=== PATIENT | male | born 1965 | race Caucasian/White ===

== ENCOUNTER 2018-01-18 00:20 | Emergency (ER) | payer OTHER, BC | END 2018-01-18 00:52 | disposition home or self-care (01) | LOC: ER 00:20 | DX: M13.862 Other specified arthritis, left knee (principal); E89.0 Postprocedural hypothyroidism | CPT/HCPCS: 73562; 99284 ==

== ENCOUNTER 2018-03-07 07:26 | Emergency (ER) | payer BC, OTHER | END 2018-03-07 08:02 | disposition home or self-care (01) | LOC: ER 08:02 | DX: K04.7 Periapical abscess without sinus (principal); K02.9 Dental caries, unspecified; F17.200 Nicotine dependence, unspecified, uncomplicated; M19.90 Unspecified osteoarthritis, unspecified site; E89.0 Postprocedural hypothyroidism | CPT/HCPCS: 99282 ==

== ENCOUNTER 2020-07-26 14:37 | Inpatient (IN) | payer BC ==
[~2020-07-26] VITALS: Ht 175.3 cm; Wt 138.6 kg
[~2020-07-26 14:37] MED LIST: CHLO15MO2 PO
[2020-07-26] MEDS ORDERED: MORPHINE SULFATE 4 MG/ML VIAL. IV ONE (15:00)
[2020-07-26] MEDS ORDERED: ONDANSETRON PF 4 MG/2 ML VIAL. IVP ONE (15:00)
[2020-07-26] MEDS ORDERED: IV NORMAL SALINE 1000ML BAG 1,000 ML IV ONE (15:00)
--- NOTE | 2020-07-26 15:09 | PHYS DOC ---
Past Medical History Past Medical History: Arthritis, Hyperthyroid Additional Past Medical Histor: graves disease Past Surgical History: Other Additional Past Surgical Histo: partial thyroidectomy Smoking Status: Current Every Day Smoker Alcohol Use: Occasionally Drug Use: None General Adult EDM: Chief Complaint: ABDOMINAL PAIN HPI: HPI: Patient is a 54 year old male who presented to ER today for evaluation of right upper quadrant abdominal pain started on Saturday associate with nausea and vomiting. Patient has history of kidney stone in the past, denies hematuria. Denies any frequency urination. Patient denies any chest pain, no trouble b reathing. Patient denies any fever. Patient denies being exposed to anybody who tested positive for COVID-19. Review of Systems: Review of Systems: Constitutional: Denies fever or chills. [] Eyes: Denies change in visual acuity. [] HENT: Denies nasal congestion or sore throat. [] Respiratory: Denies cough or shortness of breath. [] Cardiovascular: Denies chest pain or edema. [] GI: Positive for abdominal pain, nausea vomiting. : Denies dysuria. [] Musculoskeletal: Denies back pain or joint pain. [] Integument: Denies rash. [] Neurologic: Denies headache, focal weakness or sensory changes. [] Endocrine: Denies polyuria or polydipsia. [] Lymphatic: Denies swollen glands. [] Psychiatric: Denies depression or anxiety. [] Heart Score: Risk Factors: Risk Factors: DM, Current or recent (<one month) smoker, HTN, HLP, family history of CAD, obesity. Risk Scores: Score 0 - 3: 2.5% MACE over next 6 weeks - Discharge Home Score 4 - 6: 20.3% MACE over next 6 weeks - Admit for Clinical Observation Score 7 - 10: 72.7% MACE over next 6 weeks - Early Invasive Strategies Current Medications: Current Medications Medications (Trade) Dose Ordered Sig/Malachi Start Time Stop Time Status Last Admin Dose Admin Morphine Sulfate (Morphine Sulfate) 4 mg 1X ONCE 07/26/20 15:00 07/26/20 15:01 UNV Ondansetron HCl (Zofran) 8 mg 1X ONCE 07/26/20 15:00 07/26/20 15:01 UNV Sodium Chloride 1,000 ml @ 1,000 mls/hr 1X ONCE 07/26/20 15:00 07/26/20 15:59 UNV Allergies: Allergies: Allergies Coded Allergies Type Severity Reaction Last Updated Verified No Known Drug Allergies 05/31/15 No Physical Exam: PE: Constitutional: Well developed, well nourished, no acute distress, non-toxic appearance. [] HENT: Normocephalic, atraumatic, bilateral external ears normal, oropharynx moist, no oral exudates, nose normal. [] Eyes: PERRLA, EOMI, conjunctiva normal, no discharge. [] Neck: Normal range of motion, no tenderness, supple, no stridor. [] Cardiovascular:Heart rate regular rhythm, no murmur [] Lungs & Thorax: Bilateral breath sounds clear to auscultation [] Abdomen: Bowel sounds normal, soft, there is tenderness to RUQ, no masses, no pulsatile masses. [] Skin: Warm, dry, no erythema, no rash. [] Back: No tenderness, no CVA tenderness. [] Extremities: No tenderness, no cyanosis, no clubbing, ROM intact, no edema. [] Neurologic: Alert and oriented X 3, normal motor function, normal sensory function, no focal deficits noted. [] Psychologic: Affect normal, judgement normal, mood normal. [] Current Patient Data: Labs: Laboratory Tests Test 07/26/20 14:58 White Blood Count 17.6 x10^3/uL Red Blood Count 5.67 x10^6/uL Hemoglobin 16.2 g/dL Hematocrit 48.7 % Mean Corpuscular Volume 86 fL Mean Corpuscular Hemoglobin 29 pg Mean Corpuscular Hemoglobin Concent 33 g/dL Red Cell Distribution Width 14.3 % Platelet Count 318 x10^3/uL Neutrophils (%) (Auto) 75 % Lymphocytes (%) (Auto) 14 % Monocytes (%) (Auto) 10 % Eosinophils (%) (Auto) 1 % Basophils (%) (Auto) 1 % Neutrophils # (Auto) 13.2 x10^3/uL Lymphocytes # (Auto) 2.5 x10^3/uL Monocytes # (Auto) 1.7 x10^3/uL Eosinophils # (Auto) 0.1 x10^3/uL Basophils # (Auto) 0.1 x10^3/uL Segmented Neutrophils % 75 % Lymphocytes % 17 % Monocytes % 8 % Toxic Granulation Slight Toxic Vacuolation Slight Platelet Estimate Adequate Prothrombin Time 13.4 SEC Prothromb Time International Ratio 1.1 Activated Partial Thromboplast Time 30 SEC Sodium Level 134 mmol/L Potassium Level 4.5 mmol/L Chloride Level 100 mmol/L Carbon Dioxide Level 25 mmol/L Anion Gap 9 Blood Urea Nitrogen 10 mg/dL Creatinine 0.9 mg/dL Estimated GFR (Cockcroft-Gault) 88.3 BUN/Creatinine Ratio 11 Glucose Level 183 mg/dL Calcium Level 9.3 mg/dL Total Bilirubin 0.9 mg/dL Aspartate Amino Transf (AST/SGOT) 18 U/L Alanine Aminotransferase (ALT/SGPT) 22 U/L Alkaline Phosphatase 87 U/L Total Protein 7.3 g/dL Albumin 3.9 g/dL Albumin/Globulin Ratio 1.1 Lipase 78 U/L Current Medications Medications (Trade) Dose Ordered Sig/Malachi Route PRN Reason Start Time Stop Time Status Last Admin Dose Admin Ondansetron HCl (Zofran) 8 mg 1X ONCE IVP 07/26/20 15:00 07/26/20 15:02 DC 07/26/20 15:06 Morphine Sulfate (Morphine Sulfate) 4 mg 1X ONCE IV 07/26/20 15:00 07/26/20 15:02 DC 07/26/20 15:06 Sodium Chloride 1,000 ml @ 1,000 mls/hr 1X ONCE IV 07/26/20 15:00 07/26/20 15:59 DC 07/26/20 15:06 Piperacillin Sod/ Tazobactam Sod 4.5 gm/Sodium Chloride 100 ml @ 200 mls/hr 1X ONCE IV 07/26/20 16:00 07/26/20 16:29 Radiology/Procedures: Radiology/Procedures: [][][facility] [address] [place], [place] [id number] IMAGING REPORT Signed PATIENT: LAKISHA CISSE ACCOUNT: [id number] : 1965 LOCATION: ER AGE: 54 SEX: M EXAM STATUS: REG ER ORD. PHYSICIAN: FERMÍN NAIR DO REASON: ruq abdominal pain PROCEDURE: ABDOMEN LTD Abdominal ultrasound right upper quadrant: Reason for examination: Right upper quadrant abdominal pain. Pancreas is obscured by bowel gas. The inferior vena cava and abdominal aorta are obscured by bowel gas. The liver is enlarged at 20 cm and shows diffuse fatty infiltration without a focal lesion evident. Gallbladder shows cholelithiasis, sludge and gallbladder wall thickening 7 mm. No pericholecystic fluid is seen. Right kidney measures 13.5 x 6.2 x 5.6 cm in greatest dimension with normal cortical medullary differentiation with no hydronephrosis or mass seen. IMPRESSION: Hepatomegaly with fatty infiltration. Cholelithiasis, sludge and gallbladder wall thickening consistent with cholecystitis. Electronically signed by: Herve Denise MD (07/26/2020 3:52 PM) [facility] CENTERHOWIE DICTATED and SIGNED BY: HERVE DENISE MD DATE: 07/26/20 1165 Course & Med Decision Making: Course & Med Decision Making Pertinent Labs and Imaging studies reviewed. (See chart for details) Patient is a 53-year-old male who was evaluated in ER due to right upper quadrant abdominal pain, ultrasound of his right upper quadrant consistent with acute cholecystitis. Patient will be admitted to hospital, discussed with Dr. Petersen who agreesTO admit the patient. Consult general surgery, Dr. CORNEL LEONARDO. Sandra Disclaimer: Sandra Disclaimer: This electronic medical record was generated, in whole or in part, using a voice recognition dictation system. Departure Departure Impression: Primary Impression: Acute cholecystitis Disposition: ADMITTED INPATIENT Admitting Physician: Clemente Petersen Condition: STABLE Referrals: CLEMENTE PETERSEN MD (PCP) Justicifation of Admission Dx: Justifications for Admission: Justification of Admission Dx: Yes (ACUTE CHOLECYSTITIS) FERMÍN NAIR DO Jul 26, 2020 15:09
[2020-07-26 15:13] LABS: BASO # 0.1 x10^3/uL (0.0-0.2); BASO % 1 % (0-3); EOS # 0.1 x10^3/uL (0.0-0.7); EOS % 1 % (0-3); HEMATOCRIT 48.7 % (39.0-53.0); HEMOGLOBIN 16.2 g/dL (13.0-17.5); LYMPH # 2.5 x10^3/uL (1.0-4.8); LYMPH % 14 % (24-48); MEAN CORPUSCULAR HEMOGLOBIN 29 pg (25-35); MEAN CORPUSCULAR HGB CONC 33 g/dL (31-37); MEAN CORPUSCULAR VOLUME 86 fL (79-100); MONO # 1.7 x10^3/uL (0.0-1.1); MONO % 10 % (0-9); NEUT # 13.2 x10^3/uL (1.8-7.7); NEUT % 75 % (31-73); PLATELET COUNT 318 x10^3/uL (140-400); RED BLOOD COUNT 5.67 x10^6/uL (4.30-5.70); RED CELL DISTRIBUTION WIDTH 14.3 % (11.5-14.5); WHITE BLOOD COUNT 17.6 x10^3/uL (4.0-11.0)
[2020-07-26 15:20] LABS: PROTHROMBIN TIME PATIENT 13.4 SEC (11.7-14.0)
[2020-07-26 15:22] LABS: CALCIUM 9.3 mg/dL (8.5-10.1); CREATININE 0.9 mg/dL (0.7-1.3); GFR 88.3; POTASSIUM 4.5 mmol/L (3.5-5.1)
[2020-07-26 15:26] LABS: ALBUMIN 3.9 g/dL (3.4-5.0); ALBUMIN/GLOBULIN RATIO 1.1 (1.0-1.7); TOTAL BILIRUBIN 0.9 mg/dL (0.2-1.0); TOTAL PROTEIN 7.3 g/dL (6.4-8.2)
[2020-07-26 15:46] LABS: % LYMPHS 17 % (24-48); % MONOS 8 % (0-10); % SEGS 75 % (35-66)
[2020-07-26 15:48] LABS: PLT ESTIMATE ADEQUATE (ADEQUATE); TOXIC GRANULATION SLIGHT; TOXIC VACUOLATION SLIGHT
--- NOTE | 2020-07-26 15:55 | RAD ---
Abdominal ultrasound right upper quadrant: Reason for examination: Right upper quadrant abdominal pain. Pancreas is obscured by bowel gas. The inferior vena cava and abdominal aorta are obscured by bowel gas. The liver is enlarged at 20 cm and shows diffuse fatty infiltration without a focal lesion evident. Gallbladder shows cholelithiasis, sludge and gallbladder wall thickening 7 mm. No pericholecystic fluid is seen. Right kidney measures 13.5 x 6.2 x 5.6 cm in greatest dimension with normal cortical medullary differentiation with no hydronephrosis or mass seen. IMPRESSION: Hepatomegaly with fatty infiltration. Cholelithiasis, sludge and gallbladder wall thickening consistent with cholecystitis. Electronically signed by: Jing Shane MD (07/26/2020 3:52 PM) BENJAMIN
[2020-07-26] MEDS ORDERED: PIPERACILLIN/TAZOBACTAM 4.5 GM in IV NORMAL SALINE 100ML 100 ML IV ONE (16:00)
[2020-07-26] MEDS: IV NORMAL SALINE 1000ML BAG 1,000 ML IV SCH (16:24)
[2020-07-26] MEDS ORDERED: fentaNYL PF VIAL 100 MCG/2 ML VIAL IVP ONE (16:30)
[2020-07-26] MEDS ORDERED: PIP/TAZO PER PHARMACY MC PRN (16:30)
[2020-07-26] MEDS ORDERED: ONDANSETRON PF 4 MG/2 ML VIAL. IV PRN (16:30)
[2020-07-26 16:42] LABS: BILIRUBIN,URINE NEGATIVE (NEG); CLARITY,URINE CLEAR; COLOR,URINE YELLOW; NITRITE,URINE NEGATIVE (NEG); PH,URINE 6.5 (<5.0-8.0); PROTEIN,URINE NEGATIVE (NEG-TRACE)
[2020-07-26 16:54] LABS: BACTERIA,URINE 0 /HPF (0-FEW); RBC,URINE OCC /HPF (0-2); SQUAMOUS EPITHELIAL CELL,UR FEW /LPF; WBC,URINE RARE /HPF (0-4)
[2020-07-26 19:40] VITALS: BP 137/76
[2020-07-26] MEDS: fentaNYL PF VIAL 100 MCG/2 ML VIAL IV PRN ×2 (20:05→22:50)
[2020-07-26 23:00] VITALS: BP 153/74
[2020-07-26] MEDS ORDERED: LEVO200T5 PO (23:45)
[2020-07-26] MEDS ORDERED: SIMV20TA18 PO (23:45)
[2020-07-26] MEDS ORDERED: METF500T16 PO (23:45)
[2020-07-26] MEDS: PIPERACILLIN/TAZOBACTAM 3.375 GM in IV NORMAL SALINE 50ML 50 ML IV SCH (23:49)
[2020-07-27] VITALS (7 sets, daily range): BP systolic 85–143; BP diastolic 39–80
[2020-07-27] MEDS: IV NORMAL SALINE 1000ML BAG 1,000 ML IV SCH ×3 (02:54→17:42)
[2020-07-27] MEDS: fentaNYL PF VIAL 100 MCG/2 ML VIAL IV PRN ×4 (03:46→15:00)
[2020-07-27] MEDS: PIPERACILLIN/TAZOBACTAM 3.375 GM in IV NORMAL SALINE 50ML 50 ML IV SCH ×3 (05:29→17:38)
[2020-07-27] MEDS ORDERED: HEPARIN 1,000 UNIT in IV NORMAL SALINE 1,000 ML for SURG PERIOP IRR ONE (08:00)
--- NOTE | 2020-07-27 08:00 | NUR ---
sleeping. resp even and unlabored. remains npo for possible surgery later today. iv continues to infuse without difficulty
--- NOTE | 2020-07-27 08:13 | HP ---
ADMIT DATE: 07/26/2020 CHIEF COMPLAINT AND HISTORY OF PRESENT ILLNESS: This 54-year-old white male followed in my office, presented to the Emergency Room for right upper quadrant pain starting on Saturday with associated nausea and vomiting. The patient was found to have acute cholecystitis, admitted for the same and surgery. PAST MEDICAL HISTORY: Remarkable for arthritis, history of Graves disease with hypothyroidism, has diabetes, and obstructive sleep apnea. PAST SURGICAL HISTORY: Remarkable for partial thyroidectomy. MEDICATIONS: Brought with the patient, listed on the computer and have been addressed. ALLERGIES: He has no known drug allergies. SOCIAL HISTORY: He drives a truck for living. He is a current everyday smoker. He occasionally has alcohol. He denies drug abuse. FAMILY HISTORY: Noncontributory. REVIEW OF SYSTEMS: Remarkable for him feeling miserable with the abdominal pain, nausea and vomiting. PHYSICAL EXAMINATION: GENERAL: He is a well-developed, well-nourished white male, who appears uncomfortable. VITAL SIGNS: Stable. He is afebrile. HEAD, EYES, EARS, NOSE AND THROAT: Unremarkable. NECK: Supple without adenopathy or thyromegaly. CHEST: Clear to auscultation and percussion. HEART: Regular rate and rhythm without S3, S4 or murmur. ABDOMEN: Soft with right upper quadrant tenderness. No organomegaly or masses appreciated. EXTREMITIES: Without cyanosis, clubbing, edema. NEUROLOGIC: Intact. LABORATORY DATA: Initial lab is remarkable for an elevated blood sugar on the chem panel. His white count is 17,600 with a left shift. Urine shows no evidence of infection. COVID testing is negative. Ultrasound of the abdomen shows hepatomegaly with fatty infiltration, cholelithiasis, sludge, and gallbladder wall thickening consistent with cholecystitis. IMPRESSION: 1. Acute cholecystitis. 2. Other problems listed above. PLAN: The patient has been admitted. Pain will be controlled. Surgery has been consulted. He will need a cholecystectomy and the patient will be monitored, managed, and treated appropriately. CLEMENTE CHENEY MD DR: ASHLYN/dorene JOB#: [id number] / [id number]
--- NOTE | 2020-07-27 09:14 | PDOC2 ---
HERMILA JACOBS AWS DEVELOPER 07/27/20 0914: CONSULT Date of Consult Date of Consult DATE: 07/27/20 TIME: 09:09 Reason for Consult Reason for Consult: cholecystitis Referring Physician Referring Physician: ER Identification/Chief Complaint Chief Complaint abdominal pain Source Source: Chart review, Patient History of Present Illness Reason for Visit: Acute onset of abdominal pain. RUQ with radiation to back. Associated nausea and emesis. Similar symptoms in past, however would resolve on own. Some constipation issues. No aggravating or alleviating factors Past Medical History Cardiovascular: Hyperlipidemia Endocrine: Diabetes, Hypothyroidism Past Surgical History Past Surgical History: No pertinent history Family History Family History: Other (noncontributory to current illness ) Social History Quit (last on Saturday ) ALCOHOL: occassional Drugs: None Lives: with Family Current Problem List Problem List Problems Medical Problems: (1) Acute cholecystitis Status: Acute Current Medications Current Medications Current Medications Ondansetron HCl (Zofran) 8 mg 1X ONCE IVP Last administered on 07/26/20at 15:06; Start 07/26/20 at 15:00; Stop 07/26/20 at 15:02; Status DC Morphine Sulfate (Morphine Sulfate) 4 mg 1X ONCE IV Last administered on 07/26/20at 15:06; Start 07/26/20 at 15:00; Stop 07/26/20 at 15:02; Status DC Sodium Chloride 1,000 ml @ 1,000 mls/hr 1X ONCE IV Last administered on 07/26/20at 15:06; Start 07/26/20 at 15:00; Stop 07/26/20 at 15:59; Status DC Piperacillin Sod/ Tazobactam Sod 4.5 gm/Sodium Chloride 100 ml @ 200 mls/hr 1X ONCE IV Last administered on 07/26/20at 16:20; Start 07/26/20 at 16:00; Stop 07/26/20 at 16:29; Status DC Fentanyl Citrate (Fentanyl 2ml Vial) 75 mcg 1X ONCE IVP Last administered on 07/26/20at 17:17; Start 07/26/20 at 16:30; Stop 07/26/20 at 16:31; Status DC Ondansetron HCl (Zofran) 4 mg PRN Q8HRS PRN IV NAUSEA/VOMITING; Start 07/26/20 at 16:30; Stop 07/27/20 at 16:29 Fentanyl Citrate (Fentanyl 2ml Vial) 50 mcg PRN Q1HR PRN IV PAIN Last administered on 07/27/20at 03:46; Start 07/26/20 at 16:30; Stop 07/27/20 at 16:29 Sodium Chloride 1,000 ml @ 100 mls/hr Q10H IV Last administered on 07/27/20at 02:54; Start 07/26/20 at 16:24; Stop 07/27/20 at 16:23 Piperacillin Sod/ Tazobactam Sod (Zosyn Per Pharmacy) 1 each PRN DAILY PRN MC SEE COMMENTS; Start 07/26/20 at 16:30 Piperacillin Sod/ Tazobactam Sod 3.375 gm/Sodium Chloride 50 ml @ 100 mls/hr Q6HRS IV Last administered on 07/27/20at 05:29; Start 07/27/20 at 00:00 Heparin Sodium (Porcine) 1000 unit/Sodium Chloride 1,001 ml @ 1,001 mls/hr 1X ONCE IRR ; Start 07/27/20 at 08:00; Stop 07/27/20 at 08:59; Status DC Active Scripts Active Peridex (Chlorhexidine Gluconate) 15 Ml Mouthwash 15 Ml PO BID Reported Metformin Hcl 500 Mg Tablet 500 Mg PO DAILY Simvastatin 20 Mg Tablet 20 Mg PO DAILY Levothyroxine Sodium 200 Mcg Tablet 200 Mcg PO DAILYAC Allergies Allergies: Coded Allergies: No Known Drug Allergies (Unverified , 07/27/20) ROS General: YES: Chills, Fatigue PSYCHOLOGICAL ROS: No: Anxiety, Depression Eyes: No Blurry vision, No Double vision HEENT: No: Heacaches, Sore Throat Hematological and Lymphatic: No: Bleeding Problems, Blood Clots Respiratory: No: Cough, Shortness of breath Cardiovascular: No Chest Pain, No Palpitations Gastrointestinal: Yes Other (see hpi) Genitourinary: No Dysuria, No Hematuria Musculoskeletal: No Joint Pain, No Muscle Pain Neurological: No Impaired Coord/balance, No Numbness/Tingling Skin: No Pruritus, No Rash Physical Exam General: Alert, Oriented X3, Cooperative HEENT: Atraumatic, PERRLA Lungs: Clear to auscultation, Normal air movement Heart: Regular rate, Normal S1, Normal S2 Abdomen: Soft, Other (TTP RUQ, obese abdomen ) Extremities: No clubbing, No cyanosis Skin: No rashes, No breakdown Neuro: Normal gait, Normal speech Psych/Mental Status: Mental status NL, Mood NL Vitals VITALS Vital Signs Date Time Temp Pulse Resp B/P (MAP) Pulse Ox O2 Delivery O2 Flow Rate FiO2 07/27/20 07:00 99.2 95 18 135/80 (98) 94 Room Air 99.2 Labs Labs Laboratory Tests Test 07/26/20 14:58 07/26/20 16:20 07/26/20 16:30 07/26/20 20:46 White Blood Count 17.6 x10^3/uL (4.0-11.0) Red Blood Count 5.67 x10^6/uL (4.30-5.70) Hemoglobin 16.2 g/dL (13.0-17.5) Hematocrit 48.7 % (39.0-53.0) Mean Corpuscular Volume 86 fL (79-100) Mean Corpuscular Hemoglobin 29 pg (25-35) Mean Corpuscular Hemoglobin Concent 33 g/dL (31-37) Red Cell Distribution Width 14.3 % (11.5-14.5) Platelet Count 318 x10^3/uL (140-400) Neutrophils (%) (Auto) 75 % (31-73) Lymphocytes (%) (Auto) 14 % (24-48) Monocytes (%) (Auto) 10 % (0-9) Eosinophils (%) (Auto) 1 % (0-3) Basophils (%) (Auto) 1 % (0-3) Neutrophils # (Auto) 13.2 x10^3/uL (1.8-7.7) Lymphocytes # (Auto) 2.5 x10^3/uL (1.0-4.8) Monocytes # (Auto) 1.7 x10^3/uL (0.0-1.1) Eosinophils # (Auto) 0.1 x10^3/uL (0.0-0.7) Basophils # (Auto) 0.1 x10^3/uL (0.0-0.2) Segmented Neutrophils % 75 % (35-66) Lymphocytes % 17 % (24-48) Monocytes % 8 % (0-10) Toxic Granulation Slight Toxic Vacuolation Slight Platelet Estimate Adequate (ADEQUATE) Prothrombin Time 13.4 SEC (11.7-14.0) Prothromb Time International Ratio 1.1 (0.8-1.1) Activated Partial Thromboplast Time 30 SEC (24-38) Sodium Level 134 mmol/L (136-145) Potassium Level 4.5 mmol/L (3.5-5.1) Chloride Level 100 mmol/L (98-107) Carbon Dioxide Level 25 mmol/L (21-32) Anion Gap 9 (6-14) Blood Urea Nitrogen 10 mg/dL (8-26) Creatinine 0.9 mg/dL (0.7-1.3) Estimated GFR (Cockcroft-Gault) 88.3 BUN/Creatinine Ratio 11 (6-20) Glucose Level 183 mg/dL (70-99) Calcium Level 9.3 mg/dL (8.5-10.1) Total Bilirubin 0.9 mg/dL (0.2-1.0) Aspartate Amino Transf (AST/SGOT) 18 U/L (15-37) Alanine Aminotransferase (ALT/SGPT) 22 U/L (16-63) Alkaline Phosphatase 87 U/L (46-116) Total Protein 7.3 g/dL (6.4-8.2) Albumin 3.9 g/dL (3.4-5.0) Albumin/Globulin Ratio 1.1 (1.0-1.7) Lipase 78 U/L (73-393) Urine Collection Type Unknown Urine Color Yellow Urine Clarity Clear Urine pH 6.5 (<5.0-8.0) Urine Specific [place] 1.010 (1.000-1.030) Urine Protein Negative mg/dL (NEG-TRACE) Urine Glucose (UA) 100 mg/dL (NEG) Urine Ketones (Stick) Negative mg/dL (NEG) Urine Blood Negative (NEG) Urine Nitrite Negative (NEG) Urine Bilirubin Negative (NEG) Urine Urobilinogen Dipstick 1.0 mg/dL (0.2 mg/dL) Urine Leukocyte Esterase Negative (NEG) Urine RBC Occ /HPF (0-2) Urine WBC Rare /HPF (0-4) Urine Squamous Epithelial Cells Few /LPF Urine Bacteria 0 /HPF (0-FEW) Urine Mucus Mod /LPF SARS-CoV-2 Antigen (Rapid) Negative (NEGATIVE) Glucose (Fingerstick) 167 mg/dL (70-99) Test 07/27/20 07:22 Glucose (Fingerstick) 171 mg/dL (70-99) Laboratory Tests Test 07/26/20 14:58 07/26/20 16:20 07/26/20 16:30 07/26/20 20:46 White Blood Count 17.6 x10^3/uL (4.0-11.0) Red Blood Count 5.67 x10^6/uL (4.30-5.70) Hemoglobin 16.2 g/dL (13.0-17.5) Hematocrit 48.7 % (39.0-53.0) Mean Corpuscular Volume 86 fL (79-100) Mean Corpuscular Hemoglobin 29 pg (25-35) Mean Corpuscular Hemoglobin Concent 33 g/dL (31-37) Red Cell Distribution Width 14.3 % (11.5-14.5) Platelet Count 318 x10^3/uL (140-400) Neutrophils (%) (Auto) 75 % (31-73) Lymphocytes (%) (Auto) 14 % (24-48) Monocytes (%) (Auto) 10 % (0-9) Eosinophils (%) (Auto) 1 % (0-3) Basophils (%) (Auto) 1 % (0-3) Neutrophils # (Auto) 13.2 x10^3/uL (1.8-7.7) Lymphocytes # (Auto) 2.5 x10^3/uL (1.0-4.8) Monocytes # (Auto) 1.7 x10^3/uL (0.0-1.1) Eosinophils # (Auto) 0.1 x10^3/uL (0.0-0.7) Basophils # (Auto) 0.1 x10^3/uL (0.0-0.2) Segmented Neutrophils % 75 % (35-66) Lymphocytes % 17 % (24-48) Monocytes % 8 % (0-10) Toxic Granulation Slight Toxic Vacuolation Slight Platelet Estimate Adequate (ADEQUATE) Prothrombin Time 13.4 SEC (11.7-14.0) Prothromb Time International Ratio 1.1 (0.8-1.1) Activated Partial Thromboplast Time 30 SEC (24-38) Sodium Level 134 mmol/L (136-145) Potassium Level 4.5 mmol/L (3.5-5.1) Chloride Level 100 mmol/L (98-107) Carbon Dioxide Level 25 mmol/L (21-32) Anion Gap 9 (6-14) Blood Urea Nitrogen 10 mg/dL (8-26) Creatinine 0.9 mg/dL (0.7-1.3) Estimated GFR (Cockcroft-Gault) 88.3 BUN/Creatinine Ratio 11 (6-20) Glucose Level 183 mg/dL (70-99) Calcium Level 9.3 mg/dL (8.5-10.1) Total Bilirubin 0.9 mg/dL (0.2-1.0) Aspartate Amino Transf (AST/SGOT) 18 U/L (15-37) Alanine Aminotransferase (ALT/SGPT) 22 U/L (16-63) Alkaline Phosphatase 87 U/L (46-116) Total Protein 7.3 g/dL (6.4-8.2) Albumin 3.9 g/dL (3.4-5.0) Albumin/Globulin Ratio 1.1 (1.0-1.7) Lipase 78 U/L (73-393) Urine Collection Type Unknown Urine Color Yellow Urine Clarity Clear Urine pH 6.5 (<5.0-8.0) Urine Specific [place] 1.010 (1.000-1.030) Urine Protein Negative mg/dL (NEG-TRACE) Urine Glucose (UA) 100 mg/dL (NEG) Urine Ketones (Stick) Negative mg/dL (NEG) Urine Blood Negative (NEG) Urine Nitrite Negative (NEG) Urine Bilirubin Negative (NEG) Urine Urobilinogen Dipstick 1.0 mg/dL (0.2 mg/dL) Urine Leukocyte Esterase Negative (NEG) Urine RBC Occ /HPF (0-2) Urine WBC Rare /HPF (0-4) Urine Squamous Epithelial Cells Few /LPF Urine Bacteria 0 /HPF (0-FEW) Urine Mucus Mod /LPF SARS-CoV-2 Antigen (Rapid) Negative (NEGATIVE) Glucose (Fingerstick) 167 mg/dL (70-99) Test 07/27/20 07:22 Glucose (Fingerstick) 171 mg/dL (70-99) Assessment/Plan Assessment/Plan cholecystitis plan lap gabo today SMITHA SMITH MD 07/27/20 1524: CONSULT Assessment/Plan Assessment/Plan Pt seen and examined. Agree with Ms. Nickel's note Pt with multiple previous episodes of pain, but resolved This episode began 07/24, not resolved and is severe abd soft, TTP RUQ TO OR for laparoscopic cholecystectomy with cholangiogram R/R/B/A d/w pt and pt's supportive . Risks, including, but not limited to: bleeding, infection, damage to surrounding structures, risk of anesthesia, risk of open. Suspect this is fulminent cholecystitis and hence difficult. In addition, his morbid obesity makes perioperative complications more likely. They appear to understand, their questions are answered and they elect to proceed. Thanks for consult! HERMILA JACOBS APRN Jul 27, 2020 09:14 SMITHA SMITH MD Jul 27, 2020 15:24
--- NOTE | 2020-07-27 10:00 | NUR ---
awake. complains of pain in the lower abdomen and epigastric area. consent for lap gabo obtained; then medicated for pain with fentanyl
--- NOTE | 2020-07-27 10:19 | NUR ---
SW following. Discussed with RN, pt from home with spouse, room air, NPO, COVID-19 negative. Pt having a lap gabo. SW will continue to follow.
[2020-07-27] MEDS ORDERED: PROPOFOL 10 MG/ML (20ML) VIAL. IV ONE (14:15)
[2020-07-27] MEDS ORDERED: fentaNYL PF VIAL 100 MCG/2 ML VIAL ONE ×3 (14:40→16:28)
[2020-07-27] MEDS ORDERED: ROCURONIUM 50 MG/5 ML VIAL. ONE ×2 (14:40→16:38)
[2020-07-27] MEDS ORDERED: MIDAZOLAM HCL/PF 2 MG/2 ML VIAL. ONE (14:40)
[2020-07-27] MEDS ORDERED: ONDANSETRON PF 4 MG/2 ML VIAL. ONE (14:40)
[2020-07-27] MEDS ORDERED: DEXAMETHASONE SOD PHOS 4 MG/ML VIAL ONE (14:40)
[2020-07-27] MEDS ORDERED: LIDOCAINE 2% PF 5 ML VIAL. ONE ×2 (14:40→17:04)
[2020-07-27] MEDS ORDERED: INSULIN LISPRO 100 UNIT/ML 3ML VIAL for OP,RR ONLY. SQ PRN (14:45)
[2020-07-27] MEDS ORDERED: IV RINGERS,LACTATED 1000ML 1,000 ML IV SCH (15:26)
[2020-07-27] MEDS ORDERED: SURGICEL HEMOSTAT 4X8 EACH. ONE (15:29)
[2020-07-27] MEDS ORDERED: BISACODYL 10 MG SUPP.RECT. ONE (15:29)
[2020-07-27] MEDS ORDERED: BUPIVACAINE-EPI 0.5%-1:200000 MPF 30 ML VIAL. ONE (15:29)
[2020-07-27] MEDS ORDERED: IOHEXOL 300 MG/ML 50 ML VIAL. ONE (15:29)
[2020-07-27] MEDS ORDERED: PROCHLORPERAZINE 10 MG/2 ML VIAL. IV PRN (15:30)
[2020-07-27] MEDS ORDERED: fentaNYL PF VIAL 100 MCG/2 ML VIAL IV PRN ×2 (15:30)
[2020-07-27] MEDS ORDERED: ONDANSETRON PF 4 MG/2 ML VIAL. IV PRN (15:30)
[2020-07-27] MEDS ORDERED: HYDROmorphone 2 MG/ML VIAL IV PRN (15:30)
[2020-07-27] MEDS ORDERED: MORPHINE SULFATE 2 MG/ML VIAL. IV PRN ×2 (15:30→17:45)
[2020-07-27] MEDS ORDERED: LIDOCAINE 1% PF 2 ML VIAL. ID PRN (15:30)
[2020-07-27] MEDS ORDERED: PHENYLEPHRINE 10 MG/ML VIAL. ONE (16:02)
[2020-07-27] MEDS ORDERED: ESMOLOL 100 MG/10 ML VIAL. IVP ONE (16:32)
[2020-07-27] MEDS ORDERED: NEOSTIGMINE METHYLSULFATE 5 MG/5 ML SYRINGE. ONE (16:51)
[2020-07-27] MEDS ORDERED: GLYCOPYRROLATE 1 MG/5 ML VIAL. ONE (16:51)
--- NOTE | 2020-07-27 17:00 | RAD ---
Intraoperative cholangiogram INDICATION: Cholangiogram. COMPARISON: Abdominal ultrasound of 07/26/2020 FINDINGS: Single intraoperative view of the right upper quadrant abdomen was obtained during operative cholangiography. Total fluoroscopy time was 0.08 minutes. The hepatobiliary tree is opacified and there is contrast in the duodenum. No filling defects are identified. IMPRESSION: Normal single view intraoperative cholangiogram post cholecystectomy. Electronically signed by: Franky Reyes MD (07/27/2020 4:57 PM) [id number]
[2020-07-27] MEDS ORDERED: DEXTROSE 50% 25 GM / 50ML DISP.SYRIN. IV PRN (17:45)
[2020-07-27] MEDS ORDERED: HYDROcodone/APAP 5/325MG 1 TAB TABLET PO PRN (17:45)
[2020-07-27] MEDS ORDERED: ONDANSETRON PF 4 MG/2 ML VIAL. IVP PRN (17:45)
[2020-07-27] MEDS ORDERED: 0.9 % SODIUM CHLORIDE 10 ML DISP.SYRIN. IV PRN (17:45)
[2020-07-27] MEDS ORDERED: NALOXONE 0.4 MG/ML VIAL. IV PRN (17:45)
--- NOTE | 2020-07-27 17:51 | PDOC4 ---
OPERATIVE NOTE Date: Date: Jul 27, 2020 Pre-Op Diagnosis: Calculous cholecystitis Post-Op Diagnosis: same, severe, gangrenous Procedure Performed: laparoscopic cholecystectomy with cholangiogram Surgeon: Pepe Smith Anesthesia Type: GETA plus local Blood Loss: 100 Specimans Obtained: gallbladder Findings: severe cholecystitis with gangrenous changes, distended, normal cholangiogram, morbid obesity Complications: none Operative Note: After obtaining informed consent, patient was taken to OR, induced under GETA and prepped in the usual fashion. 5 mm port placed umbilical and RUQ, 12 port placed epigastric. Abdominal cavity was explored and noted as above. Gallbladder grasped and triangle of calot exposed. Cystic duct and artery identified as only structures going into gallbladder. Cystic artery ligated with clips. Cholangiogram obtained via cystic duct and was normal. Cystic duct ligated with clips and hemolok. Gallbladder taken off fossa using cautery, placed in bag, delivered and sent to pathology. Copious irrigation. No evidence of bleeding or other pathology. Surgicel placed in fossa. Ports rem charly without bleeding. Fascia repaired with 0 vicryl. Skin repaired with 4 0 monocryl. Dressing placed. Patient tolerated procedure well and sent to PACU in stable condition. All counts correct. Wound class is 4. SMITHA SMITH MD Jul 27, 2020 17:51
--- NOTE | 2020-07-27 18:15 | NUR ---
returned from surgery. immediately up to the bathroom; passed stool and urine. blood pressure is hypotensive at this time. denies lightheadedness or dizziness and returns to bed. clear liquids given. instructed not to get up by himself related to the hypotension--verbalized understanding
[2020-07-27] MEDS: IV RINGERS,LACTATED 1000ML 1,000 ML IV SCH (21:40)
[2020-07-27] MEDS: DOCUSATE SODIUM 100 MG CAPSULE. PO SCH (21:44)
[2020-07-28] MEDS: PIPERACILLIN/TAZOBACTAM 3.375 GM in IV NORMAL SALINE 50ML 50 ML IV SCH ×4 (00:05→18:54)
[2020-07-28 03:00] VITALS: BP 136/63
[2020-07-28] MEDS: IV RINGERS,LACTATED 1000ML 1,000 ML IV SCH ×3 (03:42→23:42)
[2020-07-28 07:00] VITALS: BP 132/66
[2020-07-28] MEDS: DOCUSATE SODIUM 100 MG CAPSULE. PO SCH ×2 (08:32→21:14)
--- NOTE | 2020-07-28 09:37 | NUR ---
SW following. Discussed with RN, pt from home with spouse, room air, full liquid diet. Pt had surgery 07/27/2020 - doing well. Anticipate possible discharge in the next day or two. SW will continue to follow.
--- NOTE | 2020-07-28 10:34 | PDOC ---
SURGICAL PROGRESS NOTE DATE: 07/28/20 TIME: 10:33 Subjective tolerating diet pain moderate Vital Signs Vital Signs Date Time Temp Pulse Resp B/P (MAP) Pulse Ox O2 Delivery O2 Flow Rate FiO2 07/28/20 07:00 98.6 85 18 132/66 (88) 94 Room Air 98.6 07/28/20 03:00 10.0 I&O Intake and Output 07/28/20 07:00 Intake Total 4000 ml Output Total 160 ml Balance 3840 ml Intake Oral 300 ml IV Total 2800 ml Other 900 ml Output Urine Total 60 ml Estimated Blood Loss 100 ml # Voids 1 General: Alert, Oriented X3, Cooperative Abdomen: Soft, Other (lap sites ttp) Labs Laboratory Tests Test 07/26/20 14:58 07/26/20 16:20 07/26/20 16:30 07/26/20 20:46 White Blood Count 17.6 x10^3/uL (4.0-11.0) Red Blood Count 5.67 x10^6/uL (4.30-5.70) Hemoglobin 16.2 g/dL (13.0-17.5) Hematocrit 48.7 % (39.0-53.0) Mean Corpuscular Volume 86 fL (79-100) Mean Corpuscular Hemoglobin 29 pg (25-35) Mean Corpuscular Hemoglobin Concent 33 g/dL (31-37) Red Cell Distribution Width 14.3 % (11.5-14.5) Platelet Count 318 x10^3/uL (140-400) Neutrophils (%) (Auto) 75 % (31-73) Lymphocytes (%) (Auto) 14 % (24-48) Monocytes (%) (Auto) 10 % (0-9) Eosinophils (%) (Auto) 1 % (0-3) Basophils (%) (Auto) 1 % (0-3) Neutrophils # (Auto) 13.2 x10^3/uL (1.8-7.7) Lymphocytes # (Auto) 2.5 x10^3/uL (1.0-4.8) Monocytes # (Auto) 1.7 x10^3/uL (0.0-1.1) Eosinophils # (Auto) 0.1 x10^3/uL (0.0-0.7) Basophils # (Auto) 0.1 x10^3/uL (0.0-0.2) Segmented Neutrophils % 75 % (35-66) Lymphocytes % 17 % (24-48) Monocytes % 8 % (0-10) Toxic Granulation Slight Toxic Vacuolation Slight Platelet Estimate Adequate (ADEQUATE) Prothrombin Time 13.4 SEC (11.7-14.0) Prothromb Time International Ratio 1.1 (0.8-1.1) Activated Partial Thromboplast Time 30 SEC (24-38) Sodium Level 134 mmol/L (136-145) Potassium Level 4.5 mmol/L (3.5-5.1) Chloride Level 100 mmol/L (98-107) Carbon Dioxide Level 25 mmol/L (21-32) Anion Gap 9 (6-14) Blood Urea Nitrogen 10 mg/dL (8-26) Creatinine 0.9 mg/dL (0.7-1.3) Estimated GFR (Cockcroft-Gault) 88.3 BUN/Creatinine Ratio 11 (6-20) Glucose Level 183 mg/dL (70-99) Calcium Level 9.3 mg/dL (8.5-10.1) Total Bilirubin 0.9 mg/dL (0.2-1.0) Aspartate Amino Transf (AST/SGOT) 18 U/L (15-37) Alanine Aminotransferase (ALT/SGPT) 22 U/L (16-63) Alkaline Phosphatase 87 U/L (46-116) Total Protein 7.3 g/dL (6.4-8.2) Albumin 3.9 g/dL (3.4-5.0) Albumin/Globulin Ratio 1.1 (1.0-1.7) Lipase 78 U/L (73-393) Urine Collection Type Unknown Urine Color Yellow Urine Clarity Clear Urine pH 6.5 (<5.0-8.0) Urine Specific [place] 1.010 (1.000-1.030) Urine Protein Negative mg/dL (NEG-TRACE) Urine Glucose (UA) 100 mg/dL (NEG) Urine Ketones (Stick) Negative mg/dL (NEG) Urine Blood Negative (NEG) Urine Nitrite Negative (NEG) Urine Bilirubin Negative (NEG) Urine Urobilinogen Dipstick 1.0 mg/dL (0.2 mg/dL) Urine Leukocyte Esterase Negative (NEG) Urine RBC Occ /HPF (0-2) Urine WBC Rare /HPF (0-4) Urine Squamous Epithelial Cells Few /LPF Urine Bacteria 0 /HPF (0-FEW) Urine Mucus Mod /LPF Coronavirus (PCR) Not detected (Not Detected) SARS-CoV-2 Antigen (Rapid) Negative (NEGATIVE) Glucose (Fingerstick) 167 mg/dL (70-99) Test 07/27/20 07:22 07/27/20 11:16 07/27/20 15:00 07/27/20 17:29 Glucose (Fingerstick) 171 mg/dL (70-99) 171 mg/dL (70-99) 176 mg/dL (70-99) 156 mg/dL (70-99) Test 07/27/20 20:22 07/28/20 07:26 Glucose (Fingerstick) 253 mg/dL (70-99) 174 mg/dL (70-99) Laboratory Tests Test 07/27/20 11:16 07/27/20 15:00 07/27/20 17:29 07/27/20 20:22 Glucose (Fingerstick) 171 mg/dL (70-99) 176 mg/dL (70-99) 156 mg/dL (70-99) 253 mg/dL (70-99) Test 07/28/20 07:26 Glucose (Fingerstick) 174 mg/dL (70-99) Problem List Problems Medical Problems: (1) Acute cholecystitis Status: Acute Assessment/Plan continue abx cbc pending --wbc 17--rec continue IV abx today ambulate Justicifation of Admission Dx: Justifications for Admission: Justification of Admission Dx: Yes (ACUTE CHOLECYSTITIS) HERMILA JACOBS [employer] WELDER Jul 28, 2020 10:34
[2020-07-28 10:40] LABS: BASO # 0.1 x10^3/uL (0.0-0.2); BASO % 1 % (0-3); EOS # 0.3 x10^3/uL (0.0-0.7); EOS % 2 % (0-3); HEMATOCRIT 42.2 % (39.0-53.0); LYMPH # 2.7 x10^3/uL (1.0-4.8); LYMPH % 16 % (24-48); MEAN CORPUSCULAR HEMOGLOBIN 29 pg (25-35); MEAN CORPUSCULAR HGB CONC 33 g/dL (31-37); MEAN CORPUSCULAR VOLUME 87 fL (79-100); MONO # 2.2 x10^3/uL (0.0-1.1); MONO % 12 % (0-9); NEUT # 12.4 x10^3/uL (1.8-7.7); NEUT % 70 % (31-73); PLATELET COUNT 252 x10^3/uL (140-400); RED BLOOD COUNT 4.84 x10^6/uL (4.30-5.70); RED CELL DISTRIBUTION WIDTH 14.3 % (11.5-14.5); WHITE BLOOD COUNT 17.7 x10^3/uL (4.0-11.0)
[2020-07-28 11:00] VITALS: BP 141/54
[2020-07-28 11:06] LABS: CALCIUM 8.7 mg/dL (8.5-10.1); GFR 78.2
[2020-07-28 15:00] VITALS: BP 115/61
--- NOTE | 2020-07-28 16:30 | NUR ---
Ambulated hallways twice today and tolerated it well. Will sit in chair for dinner. Cont. monitor.
[2020-07-28] MEDS: IV NORMAL SALINE 1000ML BAG 1,000 ML IV SCH (17:42)
[2020-07-28 19:25] VITALS: BP 113/56
--- NOTE | 2020-07-28 21:12 | PDOC ---
DATE OF SERVICE: DATE: 07/28/20 TIME: 21:10 GENERAL General: vss and afebrile. awake and alert and expected post op pain but much improved from preop. chest clear, heart regular, abdomen soft. ate 1/2 of breakfast. dc per surgery. VITAL SIGNS/I&O Vital Signs/I&O: Vital Signs Date Time Temp Pulse Resp B/P (MAP) Pulse Ox O2 Delivery O2 Flow Rate FiO2 07/28/20 19:40 Room Air 07/28/20 19:25 98.3 68 18 113/56 (75) 94 98.3 07/28/20 03:00 10.0 I & O 07/27/20 07/27/20 07/28/20 15:00 23:00 07:00 Intake Total 50 ml 2050 ml 1900 ml Output Total 160 ml Balance 50 ml 1890 ml 1900 ml ALLERGIES Allergies: Allergies Coded Allergies Type Severity Reaction Last Updated Verified No Known Drug Allergies 07/27/20 No LAB Lab: Laboratory Tests Test 07/28/20 07:26 07/28/20 10:23 07/28/20 11:42 07/28/20 16:28 Glucose (Fingerstick) 174 mg/dL (70-99) H 118 mg/dL (70-99) H 115 mg/dL (70-99) H White Blood Count 17.7 x10^3/uL (4.0-11.0) H Red Blood Count 4.84 x10^6/uL (4.30-5.70) Hemoglobin 14.0 g/dL (13.0-17.5) Hematocrit 42.2 % (39.0-53.0) Mean Corpuscular Volume 87 fL (79-100) Mean Corpuscular Hemoglobin 29 pg (25-35) Mean Corpuscular Hemoglobin Concent 33 g/dL (31-37) Red Cell Distribution Width 14.3 % (11.5-14.5) Platelet Count 252 x10^3/uL (140-400) Neutrophils (%) (Auto) 70 % (31-73) Lymphocytes (%) (Auto) 16 % (24-48) L Monocytes (%) (Auto) 12 % (0-9) H Eosinophils (%) (Auto) 2 % (0-3) Basophils (%) (Auto) 1 % (0-3) Neutrophils # (Auto) 12.4 x10^3/uL (1.8-7.7) H Lymphocytes # (Auto) 2.7 x10^3/uL (1.0-4.8) Monocytes # (Auto) 2.2 x10^3/uL (0.0-1.1) H Eosinophils # (Auto) 0.3 x10^3/uL (0.0-0.7) Basophils # (Auto) 0.1 x10^3/uL (0.0-0.2) Sodium Level 137 mmol/L (136-145) Potassium Level 4.0 mmol/L (3.5-5.1) Chloride Level 104 mmol/L (98-107) Carbon Dioxide Level 27 mmol/L (21-32) Anion Gap 6 (6-14) Blood Urea Nitrogen 15 mg/dL (8-26) Creatinine 1.0 mg/dL (0.7-1.3) Estimated GFR (Cockcroft-Gault) 78.2 Glucose Level 138 mg/dL (70-99) H Calcium Level 8.7 mg/dL (8.5-10.1) Test 07/28/20 20:57 Glucose (Fingerstick) 107 mg/dL (70-99) H Laboratory Tests 07/28/20 10:23 Laboratory Tests 07/28/20 10:23 Justifications for Admission Other Justification CLEMENTE CHENEY MD Jul 28, 2020 21:12
[2020-07-28] MEDS: LACTOBACILLUS RHAMNOSUS GG 1 CAPSULE. PO SCH (21:14)
[2020-07-28 23:20] VITALS: BP 110/50
[2020-07-29] MEDS: PIPERACILLIN/TAZOBACTAM 3.375 GM in IV NORMAL SALINE 50ML 50 ML IV SCH ×3 (00:06→11:27)
[2020-07-29 03:12] VITALS: BP 113/63
[2020-07-29 07:00] VITALS: BP 117/69
--- NOTE | 2020-07-29 09:12 | PDOC ---
SURGICAL PROGRESS NOTE DATE: 07/29/20 TIME: 09:10 Subjective still with pain--does not like to take narcotics--took one yesterday, did help no n/v ambulating eating Vital Signs Vital Signs Date Time Temp Pulse Resp B/P (MAP) Pulse Ox O2 Delivery O2 Flow Rate FiO2 07/29/20 07:00 97.9 58 18 117/69 (85) 94 Room Air 97.9 I&O Intake and Output 07/29/20 07:00 Intake Total 1110 ml Output Total 400 ml Balance 710 ml Intake Oral 1010 ml Other 100 ml Output Urine Total 400 ml # Voids 1 General: Alert, Oriented X3, Cooperative Abdomen: Soft, Other (lap sites c/d/i, no erythema) Labs Laboratory Tests Test 07/27/20 11:16 07/27/20 15:00 07/27/20 17:29 07/27/20 20:22 Glucose (Fingerstick) 171 mg/dL (70-99) 176 mg/dL (70-99) 156 mg/dL (70-99) 253 mg/dL (70-99) Test 07/28/20 07:26 07/28/20 10:23 07/28/20 11:42 07/28/20 16:28 Glucose (Fingerstick) 174 mg/dL (70-99) 118 mg/dL (70-99) 115 mg/dL (70-99) White Blood Count 17.7 x10^3/uL (4.0-11.0) Red Blood Count 4.84 x10^6/uL (4.30-5.70) Hemoglobin 14.0 g/dL (13.0-17.5) Hematocrit 42.2 % (39.0-53.0) Mean Corpuscular Volume 87 fL (79-100) Mean Corpuscular Hemoglobin 29 pg (25-35) Mean Corpuscular Hemoglobin Concent 33 g/dL (31-37) Red Cell Distribution Width 14.3 % (11.5-14.5) Platelet Count 252 x10^3/uL (140-400) Neutrophils (%) (Auto) 70 % (31-73) Lymphocytes (%) (Auto) 16 % (24-48) Monocytes (%) (Auto) 12 % (0-9) Eosinophils (%) (Auto) 2 % (0-3) Basophils (%) (Auto) 1 % (0-3) Neutrophils # (Auto) 12.4 x10^3/uL (1.8-7.7) Lymphocytes # (Auto) 2.7 x10^3/uL (1.0-4.8) Monocytes # (Auto) 2.2 x10^3/uL (0.0-1.1) Eosinophils # (Auto) 0.3 x10^3/uL (0.0-0.7) Basophils # (Auto) 0.1 x10^3/uL (0.0-0.2) Sodium Level 137 mmol/L (136-145) Potassium Level 4.0 mmol/L (3.5-5.1) Chloride Level 104 mmol/L (98-107) Carbon Dioxide Level 27 mmol/L (21-32) Anion Gap 6 (6-14) Blood Urea Nitrogen 15 mg/dL (8-26) Creatinine 1.0 mg/dL (0.7-1.3) Estimated GFR (Cockcroft-Gault) 78.2 Glucose Level 138 mg/dL (70-99) Calcium Level 8.7 mg/dL (8.5-10.1) Test 07/28/20 20:57 07/29/20 07:24 Glucose (Fingerstick) 107 mg/dL (70-99) 89 mg/dL (70-99) Laboratory Tests Test 07/28/20 10:23 07/28/20 11:42 07/28/20 16:28 07/28/20 20:57 White Blood Count 17.7 x10^3/uL (4.0-11.0) Red Blood Count 4.84 x10^6/uL (4.30-5.70) Hemoglobin 14.0 g/dL (13.0-17.5) Hematocrit 42.2 % (39.0-53.0) Mean Corpuscular Volume 87 fL (79-100) Mean Corpuscular Hemoglobin 29 pg (25-35) Mean Corpuscular Hemoglobin Concent 33 g/dL (31-37) Red Cell Distribution Width 14.3 % (11.5-14.5) Platelet Count 252 x10^3/uL (140-400) Neutrophils (%) (Auto) 70 % (31-73) Lymphocytes (%) (Auto) 16 % (24-48) Monocytes (%) (Auto) 12 % (0-9) Eosinophils (%) (Auto) 2 % (0-3) Basophils (%) (Auto) 1 % (0-3) Neutrophils # (Auto) 12.4 x10^3/uL (1.8-7.7) Lymphocytes # (Auto) 2.7 x10^3/uL (1.0-4.8) Monocytes # (Auto) 2.2 x10^3/uL (0.0-1.1) Eosinophils # (Auto) 0.3 x10^3/uL (0.0-0.7) Basophils # (Auto) 0.1 x10^3/uL (0.0-0.2) Sodium Level 137 mmol/L (136-145) Potassium Level 4.0 mmol/L (3.5-5.1) Chloride Level 104 mmol/L (98-107) Carbon Dioxide Level 27 mmol/L (21-32) Anion Gap 6 (6-14) Blood Urea Nitrogen 15 mg/dL (8-26) Creatinine 1.0 mg/dL (0.7-1.3) Estimated GFR (Cockcroft-Gault) 78.2 Glucose Level 138 mg/dL (70-99) Calcium Level 8.7 mg/dL (8.5-10.1) Glucose (Fingerstick) 118 mg/dL (70-99) 115 mg/dL (70-99) 107 mg/dL (70-99) Test 07/29/20 07:24 Glucose (Fingerstick) 89 mg/dL (70-99) Problem List Problems Medical Problems: (1) Acute cholecystitis Status: Acute Assessment/Plan s/p gabo cbc pending--if improved could dc home on oral abx Justicifation of Admission Dx: Justifications for Admission: Justification of Admission Dx: Yes (ACUTE CHOLECYSTITIS) HERMILA JACOBS PANEL BEATER Jul 29, 2020 09:12
[2020-07-29] MEDS ORDERED: KETOROLAC 15 MG/ML VIAL. IVP ONE (09:15)
--- NOTE | 2020-07-29 09:35 | NUR ---
SW following. Discussed with RN, surgical note states cbc pending, if improved could dc home on oral abx. RN advised no SW needs. Anticipate possible discharge home today. SW will continue to follow.
[2020-07-29 10:44] LABS: BASO # 0.1 x10^3/uL (0.0-0.2); BASO % 1 % (0-3); EOS # 0.7 x10^3/uL (0.0-0.7); EOS % 7 % (0-3); HEMATOCRIT 41.7 % (39.0-53.0); HEMOGLOBIN 13.8 g/dL (13.0-17.5); LYMPH # 2.5 x10^3/uL (1.0-4.8); LYMPH % 24 % (24-48); MEAN CORPUSCULAR HEMOGLOBIN 29 pg (25-35); MEAN CORPUSCULAR HGB CONC 33 g/dL (31-37); MEAN CORPUSCULAR VOLUME 87 fL (79-100); MONO # 1.2 x10^3/uL (0.0-1.1); MONO % 11 % (0-9); NEUT % 57 % (31-73); PLATELET COUNT 280 x10^3/uL (140-400); RED BLOOD COUNT 4.82 x10^6/uL (4.30-5.70); RED CELL DISTRIBUTION WIDTH 14.4 % (11.5-14.5); WHITE BLOOD COUNT 10.4 x10^3/uL (4.0-11.0)
[2020-07-29 11:00] VITALS: BP 135/71
[2020-07-29] MEDS: DOCUSATE SODIUM 100 MG CAPSULE. PO SCH (12:06)
[2020-07-29] MEDS: LACTOBACILLUS RHAMNOSUS GG 1 CAPSULE. PO SCH (12:06)
[2020-07-29] MEDS ORDERED: AMOX1TAB61 PO (13:47)
[2020-07-29] MEDS ORDERED: HYDR-2761 PO (13:47)
[2020-07-29] MEDS ORDERED: DOCU-153 PO (13:47)
--- NOTE | 2020-07-29 13:59 | PDOC ---
DATE OF SERVICE: DATE: 07/29/20 TIME: 13:57 GENERAL General: vss and afebrile. awake and alert and pain decent. chest clear, heart regular, abdomen benign. wbc decreased to 10K this am. will dc on po augmentin. VITAL SIGNS/I&O Vital Signs/I&O: Vital Signs Date Time Temp Pulse Resp B/P (MAP) Pulse Ox O2 Delivery O2 Flow Rate FiO2 07/29/20 11:00 98.1 61 18 135/71 (92) 91 Room Air 98.1 I & O 07/28/20 07/28/20 07/29/20 15:00 23:00 07:00 Intake Total 450 ml 320 ml 340 ml Output Total 400 ml Balance 450 ml 320 ml -60 ml ALLERGIES Allergies: Allergies Coded Allergies Type Severity Reaction Last Updated Verified No Known Drug Allergies 07/27/20 No MEDS Medications: Current Medications Medications (Trade) Dose Ordered Sig/Malachi Route PRN Reason Start Time Stop Time Status Last Admin Dose Admin Lactobacillus Rhamnosus (Culturelle) 1 cap BID PO 07/28/20 21:00 07/29/20 12:06 Ketorolac Tromethamine (Toradol 15mg Vial) 15 mg 1X ONCE IVP 07/29/20 09:15 07/29/20 09:16 DC 07/29/20 12:06 LAB Lab: Laboratory Tests Test 07/28/20 16:28 07/28/20 20:57 07/29/20 07:24 07/29/20 10:30 Glucose (Fingerstick) 115 mg/dL (70-99) H 107 mg/dL (70-99) H 89 mg/dL (70-99) White Blood Count 10.4 x10^3/uL (4.0-11.0) Red Blood Count 4.82 x10^6/uL (4.30-5.70) Hemoglobin 13.8 g/dL (13.0-17.5) Hematocrit 41.7 % (39.0-53.0) Mean Corpuscular Volume 87 fL (79-100) Mean Corpuscular Hemoglobin 29 pg (25-35) Mean Corpuscular Hemoglobin Concent 33 g/dL (31-37) Red Cell Distribution Width 14.4 % (11.5-14.5) Platelet Count 280 x10^3/uL (140-400) Neutrophils (%) (Auto) 57 % (31-73) Lymphocytes (%) (Auto) 24 % (24-48) Monocytes (%) (Auto) 11 % (0-9) H Eosinophils (%) (Auto) 7 % (0-3) H Basophils (%) (Auto) 1 % (0-3) Neutrophils # (Auto) 6.0 x10^3/uL (1.8-7.7) Lymphocytes # (Auto) 2.5 x10^3/uL (1.0-4.8) Monocytes # (Auto) 1.2 x10^3/uL (0.0-1.1) H Eosinophils # (Auto) 0.7 x10^3/uL (0.0-0.7) Basophils # (Auto) 0.1 x10^3/uL (0.0-0.2) Test 07/29/20 11:20 Glucose (Fingerstick) 123 mg/dL (70-99) H Laboratory Tests 07/29/20 10:30 Justifications for Admission Other Justification CLEMENTE CHENEY MD Jul 29, 2020 13:59
--- NOTE | 2020-07-29 14:24 | DS ---
DATE OF DISCHARGE: 07/29/2020 PRIMARY DIAGNOSIS: Gangrenous cholecystitis. ADDITIONAL DIAGNOSES: Leukocytosis, diabetes, obstructive sleep apnea. CHIEF COMPLAINT AND HISTORY OF PRESENT ILLNESS: This 54-year-old white male admitted in the Emergency Room with right upper quadrant pain with evidence of cholecystitis with leukocytosis and ultrasound compatible. SUMMARY OF STAY: The patient was admitted and taken for laparoscopic cholecystectomy. Leukocytosis persisted after surgery and Surgery had him on IV antibiotics with a plan to dismiss him on this day if his leukocytosis was improving which it was and was down to a normal white count of 10,400 from the 17,000 and been running. His left shift had resolved. He will be sent home on another 7 days of Augmentin as he has been on Zosyn while he was in the hospital and will be dismissed today. DISPOSITION: The patient is discharged to home. DIET: As tolerated. ACTIVITY: As tolerated, office in 2 weeks. DISCHARGE MEDICATIONS: Include regular home medicines and Augmentin 875 b.i.d. for the next week. CLEMENTE CHENEY MD DR: ASHLYN/dorene JOB#: [id number] / [id number]
[2020-07-29 15:00] VITALS: BP 121/71
--- NOTE | 2020-07-29 16:25 | NUR ---
discharge teaching completed. IV site discontinued without difficulty. patient states he understands his discharge teaching and follow-up instructions. He was discharged to home with spouse; escorted out by staff via w/c.
--- NOTE | 2020-08-02 11:07 | PATHOLOGY ---
[facility] Accession Number: [id number] . 01 Material submitted: . gallbladder - GALLBLADDER AND CONTENTS . 01 Clinical history: . ACUTE CHOLECYSTITIS . 02 Diagnosis: Gallbladder, excision: - Gangrenous cholecystitis; negative for malignancy. - Lithiasis. . Lymph nodes "pericystic duct region", excision: - Reactive follicular lymphoid hyperplasia with focal lipogranulomatous inflammation. . (BRONWYN:naseem; 07/29/2020) [facility] 08/02/2020 1042 Local . 02 Electronically signed: . Shakir Gaston MD, Pathologist NPI- [id number] . 01 Gross description: . Received in formalin labeled "Asaf, Melo, gallbladder and contents" is an intact cholecystectomy specimen measuring 10.5 x 4.7 x 4.2 cm. The serosa is klein-red and focally hemorrhagic with scant possible purulent exudate. The specimen is opened to reveal red-brown hemorrhagic velvety mucosa without polyps or masses. The average wall thickness is 0.1-1.1 cm. One green-black ovoid calculus is present within the cystic neck/body measuring 4.2 x 2.8 x 2.5 cm, obstructing the cystic duct. Two possible lymph nodes are identified adjacent to the cystic neck, measuring 1.5 and 0.7 cm in greatest dimension. Professional Fee Coder sections are submitted as follows: A1 fundus and body and the cystic duct margin A2 one lymph node, serially sectioned A3 one lymph node, serially sectioned ([facility]; 07/28/2020) SY/[facility] 07/29/2020 1733 Local . 02 Pathologist provided ICD-10: K80.00 . 02 CPT . 239737 Specimen Comment: A courtesy copy of this report has been sent to [phone], [phone] Specimen Comment: [id number] Specimen Comment: Report sent to / Performed at: 01 [place] [id number] [id number] MD Chinmay Marks MD Phone: [phone] Performed at: 02 [facility] [address] [place], [place] [id number] MD Logan Kim MD Phone: [phone]
== END 2020-07-29 16:27 | disposition home or self-care (01) | DRG 418 ==
LOC: ER 14:37 → 4 NORTH 16:14
PROVIDERS: ADMIT Family Medicine; ATTEND Family Medicine
PROC: BF121ZZ Fluoroscopy of Gallbladder using Low Osmolar Contrast (ICD-10-PCS; 2020-07-27)
PROC: 0FT44ZZ Resection of Gallbladder, Percutaneous Endoscopic Approach (ICD-10-PCS; principal; 2020-07-27 15:00)
DX: K80.00 Calculus of gallbladder with acute cholecystitis without obstruction (principal); Z68.42 Body mass index [BMI] 45.0-49.9, adult; E03.9 Hypothyroidism, unspecified; E11.9 Type 2 diabetes mellitus without complications; E66.01 Morbid (severe) obesity due to excess calories; E78.5 Hyperlipidemia, unspecified; F17.200 Nicotine dependence, unspecified, uncomplicated; K59.00 Constipation, unspecified; K76.0 Fatty (change of) liver, not elsewhere classified; Z20.828 Contact with and (suspected) exposure to other viral communicable diseases; G47.33 Obstructive sleep apnea (adult) (pediatric); M19.90 Unspecified osteoarthritis, unspecified site; K82.A1 Gangrene of gallbladder in cholecystitis; Z79.899 Other long term (current) drug therapy
CPT/HCPCS: 36415; 74300; 76705; 80048; 80053; 81001; 82962; 83690; 85007; 85025; 85610; 85730; 87426; 88304; 96361; 96365; 96375; 99285; A7015; J1100; J1815; J1885; J2250; J2270; J2370; J2405; J2543; J2704; J2710; J3010; J3490; J7030; J7120; Q9967; G0378; U0003-CS